=== PATIENT | female | born 1995 | race Caucasian/White ===

== ENCOUNTER 2022-09-16 08:00 | Outpatient (RCR) | payer BC, SELFPAY ==
--- NOTE | 2022-09-16 09:05 | BH.SGPN.GN ---
Behaviors/Verbalizations/Mental Status: []Eye contact good, casually dressed, motor activity appropriate, speech slight pressure but normal tone, mood depressed and anxious, congruent affect, thoughts linear and intact, no evidence of delusions or hallucinations. Reviewed pt's symptom tracker, pt denies suicidal ideation, plan, or intent as of this date. Future oriented. Client Response/Progress/Benefit: []Pt responded well to session, attentive and willing to process with group despite this being her first day. Pt reports feeling nervous but hopeful that group therapy will be helpful in improving her mental health and ability to manage sx of anxiety and depression. Discussed her mental health has begun impacting her ability to maintain employment and creates stress and fear when thinking about the future. Pt shared she is close with her younger brother who has severe autism and that this is a stressor as she worries about his future as well. Wants to work on ?trying to find skills to help me move forward?. Receptive of and appearing to benefit from support of the group environment. Recommended continued IOP tx to continue to improve use of healthy skills and self-care, continue to promote mood stability as well as prevent decompensation. Narrative Note: []
--- NOTE | 2022-09-16 10:10 | BH.SGPN.GN ---
Behaviors/Verbalizations/Mental Status: [] Eye contact is good. Motor activity is appropriate. Appearance is casual. Speech is Appropriate. Mood is anxious. Affect is congruent. Thoughts are linear and logical. No evidence of psychosis. Client Response/Progress/Benefit: [] Pt was an active participant in group discussion and experiential activity. Attentive during psychoeducation on difference between internal and external coping skills. Therapist discussed possible causes to developing and maintain unhealthy coping skills which can impact mental health. Pt participated in interactive discussion identifying common unhealthy which included; overworking, self-harming, substance use, over-sleeping, over-eating, excessive exercise, social media scrolling, isolation, etc. Able to make connections between experiential activity (folder towers) and importance of having a solid base of internal and external coping skills. Benefited from increased awareness of internal and external coping skills and identifying unhealthy coping skills. Will continue in IOP to maintain safety, increase healthy coping, and improve functioning. Narrative Note: []
--- NOTE | 2022-09-16 11:15 | BH.SGPN.GN ---
Behaviors/Verbalizations/Mental Status: []Pt alert and oriented, neatly dressed and groomed. Eye contact good. Motor activity appropriate. Speech within normal limits. Affect congruent, mood euthymic. Thoughts linear, logical, no signs of hallucinations or delusions. Client Response/Progress/Benefit: []Pt responded well to session, taking notes and contributing. Group discussed the different categories of coping skills which included distraction, emotional release, grounding, self-love, and thought challenging.? Pt participated in creating a coping skills ?menu? from the five categories of coping skills. Pt's coping skill menu included: cleaning and organizing, using a fidget, singing, standing up for herself, and using opposite action. Pt reported some of these skills are new and others are skills pt wants to use more often. Appeared to benefit from increasing repertoire of healthy coping skills. First day of IOP tx. Will continue tx to prevent decompensation, improve daily functioning, and reduce negative thinking patterns. ?? Narrative Note: []
--- NOTE | 2022-09-17 11:25 | BH.MDN ---
Multi-Disciplinary Note - Note 60-min Individual Time Started:: 09:13 Date: 09/17/22 Purpose of session/treatment goals addressed:: Purpose of session was to assess current symptoms and stressors, gather additional background information, and identify treatment goals for IOP level of care. 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 Client stated she has a mental breakdown and had to move back home to finish her last class online. Client shared was able to finish school and get her masters in special education. 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 Client stated since 2015 she realizes she has not been able to maintain a job for longer than 6 months. Client reports she did work for [employer] for 8 years but stated every time she only worked once a month. Client stated since 2019 she has had 4 different jobs in which she maintain that job for 3 to 6 months. Client reported she would often get overwhelmed at the job and decided not to go back. Client reported in addition to not being able to continue her job she is struggling with depression and anxiety for many years. Client reported when feeling significantly depressed she lays in bed until noon and has difficulty showering, brushing teeth and accomplishing daily tasks. Client reported prior to IOP she was having daily suicidal thoughts but denied intention or plan to kill self. Client stated since taking any medication she has not had suicidal thoughts in 1 week. Client notes some improvement with her depressed mood in the last 2 weeks. Client reported I feel anxious all the time. Client stated she has panic attacks, avoids things that make her anxious, and finds her healthy coping skills to only work for a small amount of time. Client expressed some frustration with having mental issues because she has a great upbringing and great support system. Client has been going to therapy and has learned many different coping skills but states the skills do not seem to help her manage her depression and anxiety for longer than a few hours. Client responded well to psychoeducation about cognitive triangle, behavior activation, and fear ladder. Client open to starting with a small goal for the weekend to help with behavioral activation. Client reported her small goal for the week and is to brush her teeth morning and evening for the weekend. Risks/Concerns:: Denies suicidal ideation, plan, intent. Future focused. States I would never follow through with my suicidal thoughts. Progress Toward Goals/Plan:: Progress noted with client reporting improvement with depressed symptoms in the last week and having no suicidal ideations in the last week. Client also notes some improvement with her marriage because she has been intentional to connect with her every day. Client did report her migraines and physical pain from anxiety can sometimes be a hindrance to her using her skills or getting out of bed. Client stated she is getting results today from psychological evaluation for autism diagnosis. Plan is for client to continue IOP to improve daily functioning, challenge disorder thought patterns, and prevent decompensation. Time Stopped:: 10:13
--- NOTE | 2022-09-17 14:22 | BH.PSA ---
Source of Information - Presenting Problems/Circumstances Problems, Referral Source, Mental Status, Client: The patient is a 26-year-old female who has been for 2 years and currently lives with her who is referred by her outpatient counselor to the [facility] behavioral health IOP program for worsening symptoms of depression and anxiety. The patient's symptoms have been impacting her functioning at home and also she feels have not impacted her ability to hold a job. She has had 4 jobs since 2019 and has been unable to maintain them for any longer really than 5 months. Patient endorses crying spells, sadness and low motivation, passive thoughts of , hopelessness, worthlessness and guilt. Past Psychiatric History - Treatment Hx Treatment History: She has a nurse psych PA for 1 year and a counselor at [place] [id number] who she sees weekly. Going to [facility] for Autism Spectrum Testing and received ADHD assessment and diagnosis through same agency. First hospitalization:: none Medication Trials:: Yes - Effexor, Prozac, Zoloft, Wellbutrin, Lexapro ECT Therapy:: No Age of first mental health symptoms: She was first depressed in childhood and took her first medications at age 18. She has a history of self-harm by cutting from age [age] but never required stitches. She then stopped cutting but burned herself with a vocational examiner around age for a while and the last time she did this was age 21. Current providers for mental health treatment (counselor, psychiatrist, block and case maker, etc.): Catrachito Bennett - counselor at [place] [id number]. Jannette Ramirez - PA at [place] [id number] for medication management Development & Family of Origin - Childhood Significant Childhood Events: She was born and raised in [place] [facility] and describes her childhood as had a hard time making friends. Her parents were somewhat loving and supportive. She denies any verbal, sexual or physical abuse. - Family Who currently lives in your home?: Lives with her . Describe family composition:: Describes her parents as somewhat loving and supportive. She has 1 brother 16 years younger than her who is autistic. Describes her marriage as good and has been for 2 years. - Family History Family Hx of Psychiatric or AOD Problems: She has a brother with autism. She has a aunt with possible schizophrenia. She has a paternal grandmother who may be borderline. No completed suicides in the family. She has a grandfather, uncle and cousins with alcoholism. Ethnicity - Sexuality Sexual Orientation: Bisexual Spirituality - Christian Do you currently identify with any organized latter-day?: Atheist - Beliefs Is there a particular form of support from this community you can use for your recovery?: No Mental Status - Memory Recent Memory: Poor Remote Memory: Good - Concentration Concentration: Fair - Eye Contact Eye Contact: Fair - Speech Speech: Congruent - Thought Process Thought Process: Logical, Ruminations Insight: Fair Judgment: Poor Behavior: Anxious - Orientation Orientation: Time, Person, Place, Situation - Appearance Appearance: Appropriate - Mood Mood: Anxious, Depressed - Affect Affect: Constricted Suicide Assessment - Suicidal Ideation Have you ever felt like hurting yourself?: Yes Please explain:: She endorses passive thoughts of . She has had fleeting, passive suicidal ideation daily for 10 years but no plan for suicide. She denies active suicidal ideation, homicidal ideation. Self-harm from age [age]. Occasionally will bang her head, last did this one month ago. Suicidal Intentional Rating Scale (SIRS): Current suicidal thoughts/No plan/Contracts for safety Physician Notification: If Active suicidal thoughts/Will not contract for safety is checked, contact physician and document in the Physician Notification section below. Violent Behavior/Abuse History - Homicidal Ideation Do you have any homicidal thoughts? If so, explain:: No Is there a known potential victim? If yes, who:: No - Abuse Have you ever been abused?: No - Life Events Are there any other significant life events?: Financial loss, Hardships - difficulty maintaining employment - Safety Do you ever feel threatened in your home? If yes, describe:: No Adult Social History - Age 16 to Present Describe your current support system:: describes her , mom, and friends as supportive Substance Use - Substance Substance Use Type: Ecstasy - tried once, Marijuana - uses daily since age 18 to help with migraines - IV Substance Use Do you have a history of IV use?: denies Education & Occupational Histo - Education What is your level of education?: Master Degree - Special Education - Occupation List any current or past employment:: Client has had 4 previous jobs since 2019, only able to maintain those jobs for 3-6 months. Service - Service Have you ever been in the ?: No Legal History - Court Orders Have you had any past court orders for psychiatric treatment?: No Do you have a present court order for psychiatric treatment?: No Problem Checklist - Current Problem Areas Problem List: Pain management, Depressed mood/sad, Anxiety, Inattention, Mood swings/hyperactivity, Sleep problems, Additional psychosocial stressors - financial due to not being able to maintain employment. 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 The patient has a history of depression and depression since childhood. The patient's symptoms have been impacting her functioning at home and also she feels have not impacted her ability to hold a job. She has had 4 jobs since 2019 and has been unable to maintain them for any longer really than 5 months. She states that she has a hard time getting along with authoritative bosses and coworkers and has a hard time staying focused and prioritizing. She has a 12-year-old brother with autism and she is needed to take care of him when her parents are gone and she feels this is protective against her ever killing herself. Patient endorses crying spells, sadness and low motivation. She endorses hopelessness, worthlessness and guilt. She says that she is anhedonic, however also states that she is currently enjoying learning how to play the piano, poetry, her dogs and riding. she has some initial insomnia but sleeps 6 hours overnight on average. She admits that she does not keep regular sleep-wake hours and often stays up late in the night playing video games or other things. She states that she has many hobbies. She has low energy and decreased concentration. She endorses passive thoughts of . She has had fleeting, passive suicidal ideation daily for 10 years but no plan for suicide. She denies active suicidal ideation, homicidal ideation, hallucinations, delusions or rosalie. She has a history of self-harm in the past but since age 21 she has only occasionally had banged for self-harm and last did this 1 month ago. Treatment Plan Recommendations - Recommendations Guidelines: Special needs identified to be included in the development of an individualized treatment plan regarding past psychiatric history and treatment, developmental events, family relationships/events/culture, past and/or current educational, occupational, social, and residential experience, and legal status. Recommendations:: Recommended to participate in IOP due to passive thoughts of and mental health decompensation.
--- NOTE | 2022-09-17 15:22 | BH.MTP ---
Master Treatment Plan - Patient Information Program Physician:: Dr. Hines Primary Therapist:: Marie Willoughby, [facility] - Psychiatric Diagnoses Psychiatric Diagnoses:: 1. Major depressive disorder, recurrent, severe. 2. Panic disorder. 3. 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 4. Marijuana use disorder. 5. Nicotine use disorder on nicotine patch for several weeks Diagnosis Code(s):: F33.2 - Estimated LOS Estimated LOS (in weeks):: 6 Problem/Goal #1 - Problem/Goal #1 Stated Goal:: Client will reduce depression, feelings of hopelessness, and suicidal ideation due to Major Depressive Disorder through Intensive Outpatient Program. Description of Barriers: Potential treatment barriers include: migraines, physical pain, negative thoughts, emotion dysregulation, and anxious thoughts. Functional Impact: The patient is a 26-year-old female who has been for 2 years and currently lives with her who is referred by her outpatient counselor to the [facility] behavioral health IOP program for worsening symptoms of depression and anxiety. The patient's symptoms have been impacting her functioning at home and also she feels have not impacted her ability to hold a job. She has had 4 jobs since 2019 and has been unable to maintain them for any longer really than 5 months. Patient endorses crying spells, sadness and low motivation, passive thoughts of , hopelessness, worthlessness and guilt. - Objectives Objective #1 Stated Objective: Client will identify and replace 2-3 negative thinking patterns that reinforce depressive symptoms. Interventions: Therapist will help client identify distorted, negative beliefs about self and replace with more realistic, affirmative messages. Therapist will use CBT to help client increase insight to the connection between thoughts, emotions, and behaviors. Therapist will encourage client to practice thought challenging. Discharge Criteria: Client will have achieved this goal when can identify at least 2 negative thinking patterns, replace thoughts with rational thoughts, and combat suicidal ideation. Target Date: 10/28/22 Review Date: 10/14/22 Objective #2 Stated Objective: Pt will decrease depressive symptoms AEB pt?s score on the DSM 5 cross-cutting measure and improve pt?s daily functioning. Interventions: Through groups and individual therapy, pt will be provided with education on cognitive distortions, mistaken beliefs, and identifying and combating negative self-talk. Therapist will assist pt with getting back into the activities she once enjoyed as well as increasing healthy coping strategies. Discharge Criteria: Pt will have met this goal when pt?s score on the DSM 5 cross cutting measure for depression has been decreased and per pt?s report daily functioning has improved. Target Date: 10/28/22 Review Date: 10/14/22 Problem/Goal #2 - Problem/Goal #2 Stated Goal:: Client will reduce overall frequency, intensity, and duration of the anxiety so that daily functioning is not impaired.? Description of Barriers: Potential treatment barriers include: migraines, physical pain, negative thoughts, emotion dysregulation, and anxious thoughts. Functional Impact: The patient is a 26-year-old female who has been for 2 years and currently lives with her who is referred by her outpatient counselor to the [facility] behavioral health IOP program for worsening symptoms of depression and anxiety. The patient's symptoms have been impacting her functioning at home and also she feels have not impacted her ability to hold a job. She has had 4 jobs since 2019 and has been unable to maintain them for any longer really than 5 months. Patient endorses crying spells, sadness and low motivation, passive thoughts of , hopelessness, worthlessness and guilt. - Objectives Objective #1 Stated Objective: Client will learn and implement 2-3 calming skills to reduce overall anxiety and manage anxiety symptoms. Interventions: therapist and group sessions will help client identify physiological warning signs of anxiety, increase awareness of thoughts that increase anxiety, and identify behaviors that reinforce anxious symptoms. Group and individual counseling will teach client calming skills to help manage anxious symptoms. Discharge Criteria: Client will have achieved this goal when can verbalize at least 2 calming skills and reports skills successfully help reduce anxious symptoms. Target Date: 10/28/22 Review Date: 10/14/22 Objective #2 Stated Objective: Pt will decrease anxious symptoms AEB pt?s score on the DSM 5 cross-cutting measure improve pt?s daily functioning. Interventions: Through groups and individual therapy, pt will be provided education about anxiety?s impact on body and common physiological reaction to anxiety. Therapist will teach pt appropriate breathing techniques and build healthy coping skills to manage daily anxieties. Discharge Criteria: Pt will have met this goal when pt?s score on the DSM 5 cross cutting measure for anxiety has been decreased and per pt?s report daily functioning has improved. Target Date: 10/28/22 Review Date: 10/14/22
--- NOTE | 2022-09-20 09:05 | BH.SGPN.GN ---
Behaviors/Verbalizations/Mental Status: [] Eye contact is good. Motor activity is appropriate. Appearance is casual. Speech is Appropriate. Mood is anxious. Affect is congruent. Thoughts are linear and logical. No evidence of psychosis. Reviewed daily check in sheet and no reports of suicidal ideations or intent. Client Response/Progress/Benefit: [] Pt was an active participant in group discussion. Attentive. Daily symptom tracker noted 3/5 for anxiety, depression, and irritability. Mental health win over the weekend was I deep cleaned the bathroom. She discussed how this benefited her mental health. Stressor involved increasing medical issues in the past several months (migraines, arm pain, and fainting). She has an upcoming CAT scan scheduled to further assess, however when she has these physical symptoms it also impacts her functioning and mental health. She had a migraine this weekend which led to avoiding a baby shower. Also shared with the group that she was dx'd with Autism yesterday after completing testing. She feels validated and discussed her struggles. Group was supportive and provided encouragement which was beneficial. Will continue in IOP to maintain safety, prevent decompensation, increase healthy coping, and improve functioning. Narrative Note: []
--- NOTE | 2022-09-20 10:15 | BH.SGPN.GN ---
Behaviors/Verbalizations/Mental Status: []Client alert and oriented, casually dressed and groomed. Eye contact good. Motor activity appropriate. Speech within normal limits. Affect congruent, mood euthymic and anxious. Thoughts linear, logical, no signs of hallucinations or delusions. Client Response/Progress/Benefit: []Client responded well to session AEB sharing and listening attentively to others. Client participated in group discussion defining anxiety and common characteristics. Group discussed the impacts of anxiety, its benefits, as well as when it becomes unhealthy. Clinician provided psychoeducation on anxiety diagnoses and the anxiety triangle of physical symptoms, safety behaviors, and common anxious thoughts. Client identified her own physical sx to include pushing feet into the floor, increase heart rate, and spacing out; and safety behaviors as avoidance and over preparing. Client appeared to benefit from increased knowledge of anxiety diagnoses and causes, as well as improved self-awareness of anxiety symptoms. Will continue IOP treatment to increase consistency of healthy coping skills, improve mood stability, and prevent decompensation. Narrative Note: []
--- NOTE | 2022-09-20 11:10 | BH.SGPN.GN ---
Behaviors/Verbalizations/Mental Status: []Pt alert and oriented, neatly dressed and groomed. Eye contact good. Motor activity appropriate. Speech within normal limits. Affect congruent, mood euthymic. Thoughts linear, logical, no signs of hallucinations or delusions. Client Response/Progress/Benefit: []Pt was an active participant in group discussion AEB? providing contributions throughout group and listening attentively to others. Pt able to connect how current safety behaviors are reinforcing anxiety. Attentive during psychoeducation on anxiety management skills. The group practiced gentle stretching and thought challenging during session. Engaged and attentive during group brainstorm of healthy anxiety reduction skills. Appeared to benefit from practicing in the moment coping skills and increasing repertoire of anxiety management skills. Pt selected wanting to work on using affirmational statements to reduce anxiety and be more mindful. Pt will continue IOP tx to prevent further decompensation, increase daily functioning, and gain healthy coping skills. ?? Narrative Note: []
== END 2022-09-21 23:59 ==
LOC: BHIOP 08:00
PROVIDERS: Referring Provider Psychiatry & Neurology Psychiatry; Visit Provider Psychiatry & Neurology Psychiatry
DX: F33.2 Major depressive disorder, recurrent severe without psychotic features (principal); F41.0 Panic disorder [episodic paroxysmal anxiety]; F12.90 Cannabis use, unspecified, uncomplicated
CPT/HCPCS: S9480; 90837; 90853

== ENCOUNTER 2022-09-22 06:50 | Outpatient (RCR) | payer BC, SELFPAY ==
--- NOTE | 2022-09-22 11:40 | BH.NA_ITS ---
Physical Data - Vital Signs Pulse Rate: 89 Blood Pressure: 140/86 - Height/Weight Height: 1.66 m Weight:: 72.575 kg Weight in Pounds: 160.0 lbs Current Medication Compliance - Medication Compliance Do you take your medication as prescribed?: Yes Nutritional History - Appetite Nutritional Instructions:: If client shows signs of a swallowing problem, weight change of 10 pounds or more in the last month, or is on a diabetic diet, the physician will review and request a dietitian consult, as appropriate. All unintentional weight loss will be referred to the physician for decision on need for dietitian consult. Describe your appetite:: Good - Client states appetite overall varies, but states weight is fairly stable. Functional Assessment - Sleep Pattern Describe any problems with sleeping: Client reports sleeping 5-6 hours per night. 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 If so, list type and date:: No Substance Abuse - Substance Abuse Please describe substance abuse in the last 30 days:: Client denies alcohol use. Client states she was vaping but has now been using a nicotine patch for 3 weeks to stop vaping. Client reports usually daily marijuana use since about age 18 for migraine headaches. Client states she has used tyler occasional in the past. Client states 1-2 caffeine drinks per day. Mental Status Summary - Mental Status Significant Findings/Observations on Appearance and Mood:: Client is alert and oriented x 4. Client is cooperative with assessment. Client is casually groomed with good hygiene. Client makes good eye contact. Client's voice has regular rate and volume. Client has appropriate affect and makes logical associations. Client has normal processing. Client denies delusions/hallucinations. Client reports some fleeting SI at times, but denies plan or intent, and denies SI this day. Suicide Assessment - Suicidal Ideation Are you currently or have you been suicidal in the past?: Yes - fleeting SI at times, no intent/plan, denies today Suicidal Intentional Rating Scale (SIRS): Suicidal thoughts (past) Physician Notification: If Active suicidal thoughts/Will not contract for safety is checked, contact physician and document in the Physician Notification section below. Assault History/Potential Past Psychiatric History - MH Treatment Hx Past Psychiatric Medications:: Effexor, Wellbutrin, Lexapro, Zoloft, Prozac Age of first mental health symptoms: Client states she has been depressed and anxious my whole life but was first on medications for mental health around age 21. Client was recently diagnosed with autism spectrum disorder and states she has an autistic brother. Describe (age, circumstance, etc) any past hospitalizations: None. Current providers for mental health treatment (counselor, psychiatrist, case worker, etc.): [place] [address] for counseling, Dayna GARCIA at [place] [address] for psychiatry Fall Risk Assessment - Age Age: Less than 60 - Mental Status Mental Status: Willing & able to ask for assistance when needed - Physical Status Physical Status: No problems - Impairments Impairments: None - Elimination Elimination: Continent AND independent - Gait or Balance Gait or Balance: Walks independently - Hx of Falls History of falls in the past 6 months: No known history - Medications/Substances Psychotropics:: Antidepressants, Antipsychotics Medications/substances used within the past 24 hours or ordered to administer: 1 -2 of the medications/substances listed above - Total Score Total Points:: 1 RN Summary of Impressions - Impressions Recommendations: Include psychiatric and medical issues, treatment planning recommendations, and discharge planning needs. Impressions: Psychiatric Issues: 1. Major depressive disorder, recurrent, moderate to severe. 2. Panic disorder. 3. 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 4. Autism spectrum disorder (F84.0). 5. Marijuana use disorder. 6. Nicotine use disorder on nicotine patch for several weeks - Level of Care How do the client's current symptoms and functional deficits support need for this level of care?: Client was referred to [facility] by outpatient therapist for anxiety, depression and fleeting SI. Client states about a month ago she had a nervous breakdown that just kept getting worse and worse. Client states she would have crying spells that made her too weak to walk, panic attacks, anhedonia, decreased motivation and decreased energy. Client states due to her mental health, she had lost several jobs over the last couple of years. Client states she has had some fleeting SI since age 12. Client states she has difficulty regulating emotions. IOP will promote gains and prevent further decompensation while providing social support and skills training.
[2022-09-22 12:06] VITALS: BP 140/86; PULSE 89
--- NOTE | 2022-09-22 13:13 | PCM.BH.PSYEV ---
Psychiatric Evaluation Initial Evaluation Initial Evaluation: History of Present Illness: [] The patient is a 26-year-old female who has been for 2 years and currently lives with her who is referred by her outpatient counselor to the [facility] behavioral health IOP program for worsening symptoms of depression and anxiety. The patient has a history of depression my whole life and anxiety and a recent diagnosis of autism spectrum disorder. The patient's symptoms have been impacting her functioning at home and also she feels have not impacted her ability to hold a job. She has had 4 jobs since 2019 and has been unable to maintain them for any longer really than 5 months. She states that she has a hard time getting along with authoritative bosses and coworkers and has a hard time staying focused and prioritizing. She has a 12-year-old brother with autism and she is needed to take care of him when her parents are gone and she feels this is protective against her ever killing herself. For primary support she has her mom, and friends. Patient endorses crying spells, sadness and low motivation. She endorses hopelessness, worthlessness and guilt over being more functional than my brother. She says that she is anhedonic as she is also states that she is not currently enjoying learning how to play the piano, poetry, her dogs and riding. Her she has some initial insomnia but sleeps 6 hours overnight on average. She is admits that she does not keep regular sleep-wake hours and often stays up late in the night playing video games or other. She states that she has many hobbies. She has low energy and decreased concentration. She endorses passive thoughts of . She has had fleeting, passive suicidal ideation daily for 10 years but no plan for suicide. She denies active suicidal ideation, homicidal ideation, hallucinations, delusions or rosalie. She drinks 8 to 24 ounces of caffeine a day mostly in the form of Dr. Navarro. She often uses caffeine after 2 PM. She has a history of self-harm in the past but since age 21 she has only occasionally had banged for self-harm and last did this 1 month ago. Current Psychiatric Medications: [] Abilify 4 mg p.o. daily (x10 days now); Pristiq 100 mg p.o. daily (x2-1/2 years now); Vistaril 25 mg, 1-3 up to 3 times a day. Past Psychiatric History: [] No psych admits ever. No suicide attempts ever. She has a nurse psych PA for 1 year and a counselor at [place] [id number] who she sees weekly. She recently discontinued the Pristiq and the Adderall or decreased it or something. She was first depressed in childhood and took her first medications at age 18. She has a history of self-harm by cutting from age [age] but never required stitches. 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 Past meds include Effexor, Prozac, Zoloft, Wellbutrin, Lexapro and 1 other including the and also the current meds. She had [employer] testing in the past. Substance Use History: [] No alcohol use. No other drugs except tried Theodora once. She does use marijuana daily smokes 10 had since age 18 and says this is the only thing that helps with her headaches. 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 She had ear tubes surgery and wisdom teeth. She is a 0 para 0 female and does not have regular menses. She does not want to get but is not using control now. Her is getting a vasectomy soon and she states that they are not having sex much. Family Psychiatric History: [] Mother and father both in their 50s. She has a brother with autism. She has not possible aunt with schizophrenia. She has a paternal grandmother who may be borderline. No completed suicides in the family. She has a grandfather, uncle and cousins with alcoholism. Personal/Social History: [] She was born and raised in [facility] and describes her childhood as had a hard time making friends. Her parents were somewhat loving and supportive. She denies any verbal, sexual or physical abuse. She has 1 brother 16 years younger than her who is autistic. In school she was very smart but she had a delay in speech and had a repeat preschool. She had trumps some trouble learning and concentrating. She graduated high school got a masters in a BS and education. She got at age 24 and describes her as supportive and her marriage is good. She had 1 other 5-year ex-fianc? in the past. Legal History: [] No arrests. No DUIs. 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 Review of Systems: [] Migraine headaches and review of systems otherwise negative except as noted in present illness. Vital Signs: [] Vital signs reviewed in the nurses notes and updated and the patient is deemed medically able to participate in the IOP program. Mental Status Examination: [] The patient is a 26-year-old female who appears normal for stated age and is casually dressed and groomed with good hygiene. She is ambulatory with a normal gait. She has no psychomotor agitation or retardation. She is cooperative during the interview. Eye contact is fair to good and speech is normal rate and rhythm and fluent with no pressure. Mood is depressed. Affect is full and normal. Thought processes goal-directed and organized. Thought content: There is evidence of passive thoughts of , fleeting, passive suicidal ideation which is chronic. There is no evidence of active suicidal ideation, homicidal ideation, hallucinations or delusions. Reality testing is intact. Intelligence is above average. Judgment is intact. Insight is limited. Impulsivity is high. Diagnoses: [] 1. Major depressive disorder, recurrent, moderate to severe 2. Panic disorder 3. Strong cluster B traits: Borderline and narcissistic 4. Autism spectrum disorder (F84.0) 5. Marijuana use disorder 6. Nicotine use disorder on nicotine patch for several weeks Plan: [] The patient will start the IOP program at [facility] as the structure, support, education and group therapy will hopefully prevent worsening of her symptoms which could require hospitalization. She felt safe during the interview and if it anytime she does not feel safe she will let us know or go to the emergency room. The risks, options, possible complications of the medications were discussed with the patient and she understands and accepts these. The patient request to decrease her Pristiq as she feels that it is not really helping her. The patient will decrease her Pristiq to 50 mg p.o. daily. She will continue to follow-up with her outpatient providers and I will see the patient in follow-up in 2 weeks. Patient agrees to keep regular sleep-wake hours as it will be difficult to improve her sleep situation until she dies. She agrees to decrease caffeine use especially no caffeine after 12 noon.
--- NOTE | 2022-09-22 13:26 | BH.DR.ITP ---
Initial Treatment Plan Patient Information Visit Information: ADMISSION DATE: EXPECTED LOS: 4-6 weeks Problems/Symptoms Problem #1:: Depression Symptom:: Sadness, hopelessness, worthlessness, guilt, passive thoughts of , fleeting, passive suicidal ideation Problem #2:: Anxiety Symptom:: Worry, rumination, panic attacks
--- NOTE | 2022-09-23 11:47 | BH.MDN_ITS ---
Multi-Disciplinary Note - Note 45-min Individual Time Started:: 09:10 Date: 09/22/22 Eye Contact:: Fair Motor Activity:: Restless Appearance:: Casual Speech:: Appropriate Mood:: Anxious, Other - dysphoric Affect:: Congruent Thoughts:: Logical, No evidence of hallucinations/delusions noted Staff Interventions:: psychoeducation on: - distorted thoughts, CBT techniques, rapport building, strengths perspective, goal setting, taught coping skills - accomplishment journal Client Response:: Client reported she is feeling off this morning. Client stated she has been anxious since waking up this morning and she cried on the drive to [facility]. Client reported she did find out last night that her will be doing band practice on the nights that are supposed to be time for them to spend together. Client stated they had come to an agreeance a couple of weeks ago that he would do band practice every other week so they have more time together. Client stated if he does the band practice twice a week she will only get to spend weekends with him because the other nights he is in classes. Client reported she feels frustrated because she's alone all day and now will be alone each evening. Client stated she didn't communicate her feelings yet, but will do so tonight. Recognizes coming up with a compromise would be helpful because she knows he needs time to do things that he enjoys since he works a lot and goes to school. Client reported she overall did better with her goal from last week of brushing her teeth twice a day. Client stated she didn't do it 100% of the time, but knows there is improvement. Client struggled with remembering what she did over the weekend. Client stated her short-term memory is poor. Client eventually noted she was able to do some cleaning, practiced with her singing, and practiced playing on the piano. Client reported she also is doing better with getting out of bed before noon. Client open to trying skill of writing down her daily accomplishments in her journal everyday to help her note positives each day and improve memory. Client identified she was able to go to [employer] yesterday by herself and didn't have anxiety because she used the [employer] kaycee to help her make a list and find the items she needed. Client noted this as significant win since she usually avoids the grocery store. Client receptive to psychoeducation about cognitive distortions and willing to read over the provided handout. Client also encouraged to write down on thought log any negative thoughts she has over the week. Client shared with therapist that she has been struggling with wanting to talk to her about becoming a polyamorous couple because she is bisexual and believes it would help their relationship if they had a third person. Client stated she hasn't broached the topic yet under recommendation of outpatient therapist for client to wait until she is more stable. Client able to identify potential positives and negatives about bringing up this idea with her . Client reported she doesn't think he would be open minded to this idea because he seems to prefer monogamy. Client stated she would like to discuss more, but will not bring this up to her yet. Risks/Concerns:: Client denies active thoughts of suicide, plan, or intention. Client has hx of daily passive thoughts of . Client identifies her brother as protective factor. future oriented. Progress Toward Goals/Plan:: Progress noted with client reporting ability to manage anxiety while at a grocery store and complete her full grocery trip without having a panic attack or significant anxiety. Client also reports following through with her goal of brushing her teeth more often. client did express concern that she still isn't ready to start a job and isn't sure she wi ll be ready for awhile. Client reported she is considering applying for disability because without her working they are having significant financial issues. Client states she knows how to apply for disability because she's helped others in a previous job. Plan is for client to continue IOP to improve emotion regulation, improve daily functioning, and prevent decompensation. Time Stopped:: 10:00
--- NOTE | 2022-09-24 09:05 | BH.SGPN.GN ---
Behaviors/Verbalizations/Mental Status: [] Eye contact is good. Motor activity is appropriate. Appearance is casual. Speech is Appropriate. Mood is depressed. Affect is congruent. Thoughts are linear and logical. No evidence of psychosis. Reviewed daily check in sheet and no reports of suicidal ideations or intent. Client Response/Progress/Benefit: [] Pt was an active participant in group discussion. Attentive. Daily symptom tracker notes 4/5 for depression, anxiety, and irritability. Mental health win was I had a job interview and is optimistic. Tearful while discussing the interview. Ruminating on obtaining a Master's Degree and failing at every job that she has attempted in her field of study. 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 Group provided support and reframed certain cognitive distortions. Another stressor was conflict with her . Benefited from group support, encouragement, and feedback. Will continue in IOP to maintain safety, prevent decompensation, increase healthy coping, and improve functioning. Narrative Note: []
--- NOTE | 2022-09-24 10:20 | BH.SGPN.GN ---
Behaviors/Verbalizations/Mental Status: []Client alert and oriented, casually dressed and groomed. Eye contact good. Motor activity appropriate. Speech within normal limits. Affect congruent, mood anxious. Thoughts linear, logical, no signs of hallucinations or delusions. Client Response/Progress/Benefit: []Client receptive to session AEB contributing to discussion, as well listening attentively to others, and taking notes. Worked with group to brainstorm the positive and negative aspects of stress on physical and mental health. Group did well to identify the benefits of stress as well as the impact of distress on performance, relationships, and mental health. Client identified their personal top stressors as: not being able to maintain a job, financial problems, and medical issues. Client reports when the stress overflows client reacts by crying a lot and eventually shutting down. Client seemed to benefit from increased awareness of current stressors and impact stress has on mental health. Recommended to continue IOP tx to improve daily functioning, increase utilization of healthy coping skills, and prevent decompensation.
--- NOTE | 2022-09-24 11:15 | BH.SGPN.GN ---
Behaviors/Verbalizations/Mental Status: []Pt alert and oriented, neatly dressed and groomed. Eye contact good. Motor activity appropriate. Speech within normal limits. Affect congruent, mood euthymic. Thoughts linear, logical, no signs of hallucinations or delusions. Client Response/Progress/Benefit: []Pt engaged participant AEB listening attentively to others and contributing to discussion. Attentive during psychoeducation on the 4 A's of Coping with Stress (Avoid, Alter, Adapt, Accept). Participated in experiential activity in which group members had to utilize stress management skills in the moment. Pt was encouraging others and providing direction to group. Pt engaged in review of the 4 A?s and picked wanting to work on accepting her medical issues and needing a different work environment. Benefited from processing in the moment stress management strategies and identifying new ways to cope with stress. Will continue in IOP tx to prevent decompensation, improve daily functioning, and increase application of healthy coping skills. Narrative Note: []
--- NOTE | 2022-09-27 09:03 | BH.SGPN.GN ---
Behaviors/Verbalizations/Mental Status: []Eye contact is good. Motor activity is appropriate. Appearance is casual. Speech is Appropriate. Mood is euthymic, positive. Affect is congruent. Thoughts are linear and logical. No evidence of psychosis. Reviewed daily check in sheet and no reports of suicidal ideations or intent. Client Response/Progress/Benefit: []Pt was an active participant in group discussion. Attentive. Pt reported mental health positive as taking steps to quit smoking and getting the nicotine patch to aid in doing so. Additional positive noted as challenging herself to have a difficult conversation with her when feeling her needs were not being met. Indicated that this was uncomfortable at first but resulted in being able to feel her was more present and engaged throughout the remainder of the weekend. Shared their differences in values and priorities is a source of contention within the relationship which has been an ongoing stressor. Group was supportive and provided encouragement and empathic responses, which was beneficial. Will continue in IOP to continue to improve consistent use of healthy communication, promote mood stability, and prevent decompensation. Narrative Note: []
--- NOTE | 2022-09-27 10:15 | BH.SGPN.GN ---
Behaviors/Verbalizations/Mental Status: []Pt alert and oriented, neatly dressed and groomed. Eye contact good. Motor activity appropriate. Speech within normal limits. Affect congruent, mood euthymic. Thoughts linear, logical, no signs of hallucinations or delusions. Client Response/Progress/Benefit: []Pt participated at times during the group discussions. Participated during interactive discussion on defining conflict (internal/external) and possible benefits to conflict. Attentive during psychoeducation on conflict styles and engaged during small group activity in which peers identified the benefits and consequences to each conflict style. Pt identified that their primary conflict style as collaborating. Stated healthy conflict can lead to growth within a relationship. Benefited from increased awareness of the impact of conflict styles in mental health. Will continue in IOP to challenge distorted thoughts, improve emotion regulation, and prevent decompensation.
--- NOTE | 2022-09-27 20:47 | BH.MDN ---
Multi-Disciplinary Note - Note 60-min Individual Time Started:: 11:00 Date: 09/27/22 Purpose of session/treatment goals addressed:: Purpose of session was to address goals 1 and 2 from MTP. Eye Contact:: Fair Motor Activity:: Restless Appearance:: Casual Speech:: Appropriate Mood:: Anxious Affect:: Congruent Thoughts:: Linear, Logical, No evidence of hallucinations/delusions noted Staff Interventions:: CBT techniques, rapport building, strengths perspective, goal setting, other - reviewed homework Client Response:: Client reported she completed her homework from last session of working on an accomplishment journal. Client stated she started identifying accomplishments with her . client reported overall her weekend was positive. Client stated she was able to spend a lot of quality time with her . Client stated she had open conversation with her about her not feeling that he is doing enough to fill her love cup. Client reported she brought up the idea of opening their relationship to a third person so she can get her needs met and he can have a break. Client stated her was not open to that idea and stated he would put more effort into being more connected to her. Client stated she is hopeful they will continue to work on their relationship. Client reported continued stress about not being able to find a job. Client stated she had a job interview last week for a part-time job. Reported she isn't sure she got the job, but is hopeful it would be a good fit for her. Client stated some of her financial stress has decreased since her found out he will be getting a promotion with a pay increase this summer. Client reported she still thinks applying for disability and social security because she doesn't think she can maintain a job right now due to her mental health. Client stated she still doesn't have a morning routine because she's currently focusing on getting out of bed at least 5-10 minutes after her alarm goes off. Open to ideas on what can help her get out of bed. Client agreed to look at cognitive distortions and identify her top distortions that impact her. Risks/Concerns:: Client denies current suicidal ideation, plan or intention. Future focused. Progress Toward Goals/Plan:: Client reported slight decrease in depressive symptoms and not having any suicidal thoughts in over a week. Client continues to report daily anxiety. Client continues to report low energy, racing thoughts, and feeling tired all the time. Client reports improvement with communication within her relationship. Client does not believe she can maintain a full-time job due to her mental health and plans to apply for disability to help with financial stress of paying bills. Client is to continue IOP to improve daily functioning, consistently apply skills, and prevent decompensation. Time Stopped:: 11:57
--- NOTE | 2022-09-29 09:00 | BH.SGPN.GN ---
Behaviors/Verbalizations/Mental Status: [] Eye contact is good. Motor activity is appropriate. Appearance is casual. Speech is Appropriate. Mood is depressed/irritable. Affect is congruent. Thoughts are linear and logical. No evidence of psychosis. Reviewed daily check in sheet and no reports of suicidal ideations or intent. Client Response/Progress/Benefit: [] Pt was an active participant in group discussion. Attentive. Emotion for today is agitated. Daily symptom tracker notes 4/5 for anxiety and irritability and 3/5 for depression. She experienced a migraine yesterday which significantly impacted her functioning and emotions. Talked about the impact that her physical and somatic have on her mental health as well as functioning (tasks, employment, etc). Her mental health win was cleaning a little bit despite the migraine. Brief check during process group noting residual migraine. Benefited from group support, encouragement, and feedback. Will continue in IOP to maintain safety, prevent decompensation, increase healthy coping, and improve functioning. Narrative Note: []
--- NOTE | 2022-09-29 10:15 | BH.SGPN.GN ---
Behaviors/Verbalizations/Mental Status: [] Client alert and oriented, casually dressed and groomed. Eye contact fair. Motor activity appropriate. Speech within normal limits. Affect constricted, mood anxious. Thoughts linear, logical, no signs of hallucinations or delusions. Client Response/Progress/Benefit: Pt participated at times during group discussion. Active during group activity. Attentive during psychoeducation on fear and the impact that fear of failure can have. Pt and peers provided insight on thoughts that contribute to fear of failure such as: I'm not good enough, I won't succeed, I know I can't/couldn't do it, and I could have done that better. Pt and peers were able to identify the benefits to failure in an attempt to reframe. Group identified that failure can be a way to: learn what to do differently, lead to personal growth, increase self-compassion, and problem-solve. Pt benefited from psychoeducation on the impact of fear of failure and changing perspective on how to view setbacks. Pt will continue in IOP to improve emotion regulation, increase healthy coping skills, and prevent decompensation.
--- NOTE | 2022-09-29 11:10 | BH.SGPN.GN ---
Behaviors/Verbalizations/Mental Status: []Client alert and oriented, casually dressed and groomed. Eye contact fair to good. Motor activity appropriate. Speech within normal limits. Affect congruent, mood anxious, dysthymic. Thoughts linear, logical, no signs of hallucinations or delusions. Client Response/Progress/Benefit: []Client responded well to session, engaged in the experiential activity and attentive throughout group processing. Client reported fear of failure has kept client from being herself, exploring career opportunities, and expanding friendships. Client completed fear of failure worksheet and was able to identify thoughts and behaviors that reinforce personal fear of failure including difficulty stepping out of her comfort zone, avoidance, and limited healthy support. Client participated in group discussion regarding strategies to overcome fear of failure. Identified wanting to work on lowering her expectations for herself. Appeared to benefit from increased knowledge of strategies to combat fear of failure and gaining self-awareness. Client will continue IOP tx to increase emotional regulations skills, healthy boundaries, and improve overall functioning. Narrative Note: []
--- NOTE | 2022-10-01 10:10 | BH.SGPN.GN ---
Behaviors/Verbalizations/Mental Status: [] Eye contact is good. Motor activity is appropriate. Appearance is casual. Speech is Appropriate. Mood is anxious. Affect is congruent. Thoughts are linear and logical. No evidence of psychosis. Client Response/Progress/Benefit: [] Pt was an active participant in group discussions. Attentive during psychoeducation. Participated during interactive discussions in which peers attempted to define crisis. Group also worked together to identify unhealthy responses to crisis which included; isolation, self-harm, over-sleeping, impulsive activities, over-sharing, and lashing out. Pt identified her top 3 warning signs that she is in crisis which were 1.Worrying about the next day 2. Rumination 3. Lack of sleep. Benefited from increased understanding of crisis and awareness of personal warning signs to crisis. Will continue in IOP to prevent decompensation, stabilize mood, increase healthy coping, and improve functioning to return to FT work. Narrative Note: []
--- NOTE | 2022-10-01 11:10 | BH.SGPN.GN ---
Behaviors/Verbalizations/Mental Status: []Pt alert and oriented, casually dressed and appropriately groomed. Eye contact good. Motor activity appropriate. Speech within normal limits. Affect congruent, mood anxious and depressed. Thoughts linear, logical, no signs of hallucinations or delusions. Client Response/Progress/Benefit: []Pt responded well to session as evidenced by listening attentively to others and providing strategies during discussion.? Pt identified personal warning signs for crisis and gained further awareness of earliest warning signs. Pt created a crisis action plan to help better manage warning signs for crisis. Pt able to create action plan for warning sign of lack of sleep. Pt's action plan included: getting up and doing something and then laying back down, change the environment, and schedule a therapy appointment. Pt appeared to benefit from creating a crisis action plan and increasing self-awareness. Pt continue IOP tx to continue to improve mood stability, increase healthy coping, and prevent decompensation. Narrative Note: []
--- NOTE | 2022-10-01 16:01 | BH.MDN ---
Multi-Disciplinary Note - Note 60-min Individual Time Started:: 09:00 Date: 10/01/22 Purpose of session/treatment goals addressed:: Purpose of session was to address goals 1 and 2 from MTP. 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 Client stated she thinks the job will be better for her because it's less people interaction and decrease stress. Client reported she is a little worried about being able to stay awake because lately she thinks the [employer] is making her tired throughout the day. Client reported she really hasn't gotten much done around the house due to being too tired. Client will continue to observe her energy level and can talk to the [facility] psychiatrist at her next session. Client did homework of reviewing cognitive distortions and identifying which distortions she feels like she connects with. Client stated she utilizes emotional reasoning, personalization, jumping to conclusions, Mental filter, overgeneralization, disqualifying the positives, and labeling. client noted she likely utilizes all 10 distortions that were on the list but stated the ones above our used most frequently. Client able to connect how commiserations impact her interactions with other people in judgment of herself. Client reported her mind reading in labeling has led to difficulty in her work environment because she'll get into verbal altercations with others based on how she thinks others are thinking. Client recognizes the importance of being able to identify and challenge distortions which is something she's open to working on. Client shared additional stressor is her leaving for the weekend to do a band show. Client stated she feels like her doesn't want to spend time with her which makes her feel extremely sad and lonely. Therapist gently challenged that her spent all last weekend with her and quit his second band to allow more time to be with her. Client stated she feels like he's already filled up his free time with spending time with his other friends. Client continues to express concern if he doesn't put more effort into spending time with her she's not sure how long this marriage can last. client worked with therapist to develop plan for the weekend to help her manage thoughts and emotions while he is gone. Client stated she can do some crafting, cleaning, and hang out with her parents. Client stated tonight she will get to spend time with her because they're going to poetry night which is something he has suggested. Therapist encouraged client to continue to openly communicate with her about her feelings and thoughts instead of making assumptions on how he's feeling. Risks/Concerns:: Client reports passive thoughts of . Denies suicidal intention or plan. future focused. 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 client is showing increased awareness into how her thought patterns impact her emotions and behavior. Client is to spend time logging distorted thoughts throughout the week so next week we can start to practice challenging distortions. Client to continue IOP to increase consistent use of healthy skills, improve daily functioning, and prevent decompensation. Time Stopped:: 10:00
--- NOTE | 2022-10-04 09:05 | BH.SGPN.GN ---
Behaviors/Verbalizations/Mental Status: []Eye contact good, casually dressed, motor activity appropriate, speech normal rate and tone, mood euthymic and anxious, congruent affect, thoughts linear and intact, no evidence of delusions or hallucinations. Reviewed pt's symptom tracker, pt denies suicidal ideation, plan, or intent as of this date. Future oriented. Client Response/Progress/Benefit: [] Pt responded well to session, attentive and willing to process with group. Pt did well to identify wins, which included using opposite action to go to a local place and play pool rather than isolate while her was out of town. Reported feeling less anxious and able to make a new friend as a result. Additional win identified as working with [employer] to improve her support while pursuing new occupational opportunities. 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 Identified current stressor as ongoing issues with expectations within her marriage. Receptive of supportive feedback and suggestions from the group. Progress noted in increased reports of improved skill application and communication with her in order to aid in pt getting her needs met. Recommended continued IOP tx to continue to improve use of healthy skills, promote mood stability, as well as prevent decompensation. Narrative Note: []
--- NOTE | 2022-10-04 10:10 | BH.SGPN.GN ---
Behaviors/Verbalizations/Mental Status: [] Eye contact is good. Motor activity is appropriate. Appearance is casual. Speech is Appropriate. Mood is anxious. Affect is congruent. Thoughts are linear and logical. No evidence of psychosis. Client Response/Progress/Benefit: [] Pt was an active participant in group discussions. Attentive during psychoeducation and participated in experiential activity. Participated during interactive discussion on how emotions can negatively impact how we communicate. Pt along with peers identified that intense emotions can impact one's ability to focus, cause one to shut down, lead to word vomit, cause cognitive distortions (Catastrophizing, Minimizing, mind-reading), and can impact one's ability to comprehend. Pt participated during interactive discussion on the importance of communicating one's emotions to others which can prevent blow-ups, help one get their needs met, help others better understand our emotions/concerns/stressors, can build trust with others, and can help us advocate for ourselves. Able to identify and elaborate on the connections between experiential activity and group topic. Benefited from increased awareness of how emotions can impact communication. Will continue in IOP to maintain safety, prevent decompensation, and improve functioning to return to work. Narrative Note: []
--- NOTE | 2022-10-04 11:15 | BH.SGPN.GN ---
Behaviors/Verbalizations/Mental Status: []Pt alert and oriented, casually dressed and groomed. Eye contact good. Motor activity appropriate. Speech within normal limits. Affect constricted, mood tired. Thoughts linear, logical, no signs of hallucinations or delusions. Client Response/Progress/Benefit: []Pt engaged in session AEB pt listening attentively to peers and providing input. Attentive during psychoeducation on 4 zones of regulation. Pt able to identify feelings and behaviors for each zone.? Pt identified coping skills one can use to support self in each zone. Pt stated belief that she is ?in a state of blue and yellow? as pt feels ?worked up but I?m always tired.? Pt reports practicing self-care and spending time with her deepthi will help pt today. Benefited from increased education on zones of regulation or stages of alertness for emotions and healthy coping skills to use for each zone. Pt will continue IOP tx to prevent decompensation, improve daily functioning, and combat distortions. Narrative Note: []
--- NOTE | 2022-10-08 10:13 | BH.SGPN.GN ---
Behaviors/Verbalizations/Mental Status: []Eye contact is good. Motor activity is appropriate. Appearance is casual. Speech is Appropriate. Mood is euthymic and anxious. Affect is congruent. Thoughts are linear and logical. No evidence of psychosis. Client Response/Progress/Benefit: []Pt was an active participant in group discussions and activities. Attentive during psychoeducation. Pt engaged during interactive discussion in which the group defined self-care and discussed its benefits. Sharing that self-care can enhance a learned skill.?Worked with group to identify myths related to self-care which included; self-care is selfish, don?t feel they deserve self-care/must be earned, self-care means a person is weak, and self-care takes up too much time. Pt participated in small groups where they worked to bust these self-care myths. Benefited from increased awareness of self-care, its benefits, and the consequences of not utilizing self-care strategies. Pt made a lot of connections in group sharing ?self-care is hard for her as she often waits until she is burnt out and then struggles with motivation and energy to complete self-care.? Will continue in IOP to prevent decompensation, increase healthy communication and emotion regulation skills, and improve functioning.? Narrative Note: []
--- NOTE | 2022-10-08 11:10 | BH.SGPN.GN ---
Behaviors/Verbalizations/Mental Status: []Pt alert and oriented, casually dressed and groomed. Eye contact good. Motor activity appropriate. Speech within normal limits. Affect congruent, mood anxious. Thoughts linear, logical, no signs of hallucinations or delusions. Client Response/Progress/Benefit: []Pt engaged participant AEB completing self-assessment worksheet and providing input throughout discussion. Participated in group discussion on the various areas of self-care. Pt completed worksheet identifying current self-care practices and what self-care activities pt wants to start using. Pt selected personal self-care to begin practicing more consistently. Pt plans to do this by starting to exercise and spend time in nature. Appeared to benefit from completing the self-care evaluation and gaining insights into current self-care practices, as well as identifying areas in which pt ?would like to improve upon.?Will continue IOP tx to prevent decompensation, improve daily functioning, and increase healthy coping skills. ???
--- NOTE | 2022-10-12 09:05 | BH.SGPN.GN ---
Behaviors/Verbalizations/Mental Status: []Eye contact good, casually dressed, motor activity appropriate, speech normal rate and tone, mood euthymic and anxious, congruent affect, thoughts linear and intact, no evidence of delusions or hallucinations. Reviewed pt's symptom tracker, pt suicidal ideation within established baseline, denies any plan or intent. Future oriented. Client Response/Progress/Benefit: []Pt responded well to session, attentive and willing to process with group. Pt reports feeling anxious this morning. 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 Shared struggling with confrontation and fears being yelled at. Did well to identify several skills and strategies she can use before, during, and after the call. Connected with supportive suggestions from the group as well. Went on to identify mental health wins for today. This included proactively treating a migraine rather than trying to ignore her symptoms. Shared being able to take time to clean her house as a result which was another win for her. Progress noted in increased use of anxiety management skills. Recommended continued IOP tx to continue to improve consistent use of healthy emotion regulation skills, promote mood stability, as well as prevent decompensation. Narrative Note: []
--- NOTE | 2022-10-12 10:15 | BH.SGPN.GN ---
Behaviors/Verbalizations/Mental Status: []Pt alert and oriented, causally dressed and groomed. Eye contact good. Motor activity appropriate. Speech within normal limits. Affect congruent, mood euthymic. Thoughts linear, logical, no signs of hallucinations or delusions. Client Response/Progress/Benefit: []Pt responded well to session AEB contributing to discussion, taking notes, and listening attentively to others. Group discussed the benefits of managed anger and anger as a secondary emotion. Pt shared perspective on personal benefits of anger as keeping self safe.? Pt completed worksheet on anger triggers and personal warning signs of anger. Pt identified their biggest triggers as being invalidated, traffic, and seeing injustice. Appeared to benefit from increased knowledge of the anger cycle as well as personal triggers. Will continue IOP tx to improve daily functioning, increase distress tolerance skills, and improve mood stability. Narrative Note: []
--- NOTE | 2022-10-12 11:15 | BH.SGPN.GN ---
Behaviors/Verbalizations/Mental Status: []Client alert and oriented, casually dressed and groomed. Eye contact good. Motor activity appropriate. Speech within normal limits. Affect congruent, mood euthymic, slightly anxious. Thoughts linear, logical, no signs of hallucinations or delusions. Client Response/Progress/Benefit: []Pt was engaged throughout AEB contributing to group discussion and self-reflection. Group finished processing cues to anger worksheet. Pt contributed as group brainstormed healthy coping skills for better managing anger which included: music, walking/exercise, changing the environment, communicating with supports, and journaling. Pt reported she would like to work on skill of belly breathing in the moment and problem solving to help manage anger responses. Pt appeared to benefit from identifying different techniques to manage anger as well as gaining awareness of potential consequences of unmanaged anger. Will continue IOP tx to increase consistent use of skills, challenge distortions, and prevent decompensation.
--- NOTE | 2022-10-13 09:03 | BH.SGPN.GN ---
Behaviors/Verbalizations/Mental Status: []Eye contact good, casually dressed, motor activity appropriate, speech normal rate and tone, mood anxious, congruent affect, thoughts linear and intact, no evidence of delusions or hallucinations. Reviewed pt's symptom tracker, suicidal ideation within baseline, pt denies plan, or intent as of this date. Future oriented. Client Response/Progress/Benefit: []Pt responded well to session, attentive and willing to process with group. Pt stated she has been feeling tired and blah the last few days. Client reported mental health positive as allowing herself to take a nap yesterday which helped her feel refreshed and able to be productive with chores. Client stated additional mental health positive as taking time to relax after having a busy weekend celebrating her birthday. Client reported current stressor as still waiting to hear from her job when her start date will be. Appeared to benefit from group?discussion and supportive environment. Recommended continued IOP tx to continue to increase healthy coping skills, challenge negative thoughts, and prevent decompensation.
--- NOTE | 2022-10-13 11:10 | BH.SGPN.GN ---
Behaviors/Verbalizations/Mental Status: []Pt alert and oriented, casually dressed and groomed. Eye contact good. Motor activity appropriate. Speech within normal limits. Affect congruent, mood anxious. Thoughts linear, logical, no signs of hallucinations or delusions Client Response/Progress/Benefit: []Pt responded well to session AEB completing the resilience worksheet provided. Reports belief they already use resilience traits of??self-awareness and accepting that change is a part of living.? Pt shared these traits will help pt overcome current stressors. Pt stated they would like to continue to develop resilience trait of ?keeping things in perspective? which pt wants to do this by ?thinking in the ivey.? Pt seemed to benefit from discussing strategies for improving personal resilience and identifying resilience traits pt already possesses. Progress noted as pt?s DSM-5 scores decreased at time of review. Will continue IOP tx to increase distress tolerance skills, improve daily functioning, and improve energy. Narrative Note: []
--- NOTE | 2022-10-13 12:40 | PCM.BH.PN ---
Progress Note Progress Note: History of Present Illness/Interim History: The patient is a 27-year-old , female with a history of depression and anxiety and autism spectrum disorder who is seen in follow-up at the [facility] behavioral health IOP program. She was last seen 3 weeks ago and at that time her Pristiq was decreased to 50 mg p.o. daily. Patient states that she feels her mood is overall better and she feels she is less depressed than before. She still feels tired a lot of the time. She still has some anxiety but is not having any panic attacks. She feels she is in more control of her moods and is benefiting from the self-care techniques and strategies such as opposite action which she has learned in the IOP. 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 The patient still has some decrease in concentration because she is still not receiving her Adderall and she feels she may need this to do well at her new job. She is sleeping 8 to 10 hours a night but still has some fatigue in the daytime. She has only had 1 panic attack since last visit on September 22, 2022. She denies any self-harm, suicidal ideation, homicidal ideation, passive thoughts of , hallucinations or delusions. She still uses her marijuana vaporizer daily for headache prevention. She complains of neck tension which is severe and states she wakes up that way every morning and lasts all day and she feels this also contributes to her migraine headaches. Current Psychiatric Medications: [] Pristiq 50 mg p.o. daily; Abilify 4 mg p.o. daily; not taking the Vistaril. Also on Ajovy for her migraines. Mental Status Examination: [] The patient is a 27-year-old female who appears normal for stated age and is casually dressed and groomed with good hygiene. She is ambulatory with a normal gait. She has no psychomotor agitation or retardation. She is cooperative during the interview and has good eye contact. Speech is normal rate and rhythm and fluent with no pressure. Mood is mildly anxious. Affect is full and normal. Thought processes goal-directed and organized. Thought content: The patient is looking forward to starting her new job but is worried that if she does not get her Adderall she will be not able to function as well. There is no evidence of passive thoughts of , suicidal ideation, homicidal ideation, hallucinations or delusions. Reality testing is intact. Judgment is intact. Insight is good. Impulsivity is moderate. Diagnoses: [] 1. Major depressive disorder, recurrent moderate 2. Panic disorder 3. Strong cluster B traits 4. Autism spectrum disorder 5. Marijuana use disorder 6. Nicotine use disorder on nicotine patch 7. Chronic migraine headaches and chronic neck stiffness Plan: [] Patient will continue the IOP program as the structure, support, education and group therapy will hopefully prevent worsening of the patient's symptoms which might require hospitalization. She felt safe during the interview and if it anytime she does not feel safe she will let us know or go to the emergency room. The risk, options, possible complications of medications were discussed with the patient and she understands and accepts these. The patient will restart her Adderall when she returns to her outpatient provider soon. No medication changes were made today except the patient agrees to try Flexeril 5 mg p.o. nightly to help possibly reduce tension in her neck and shoulders which is causing her discomfort and possibly increasing her incidence of migraine headaches. She will continue to follow-up with her outpatient medical and psychiatric providers and I will see the patient in follow-up while she is in the IOP program.
--- NOTE | 2022-10-13 13:08 | BH.TPR ---
Treatment Plan Review Date of Admission:: 09/16/22 Date of Treatment Plan Review:: 10/13/22 Admitting Diagnoses:: 1. F33.2 Major depressive disorder, recurrent, severe. 2. Panic disorder. 3. 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 4. Marijuana use disorder. 5. Nicotine use disorder on nicotine patch for several weeks Current Diagnoses:: 1. F33.2 Major depressive disorder, recurrent, severe. 2. Panic disorder. 3. 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 4. Marijuana use disorder. 5. Nicotine use disorder on nicotine patch for several weeks Patient's Response to Treatment:: Pt has responded overall well to IOP as evidenced by mostly consistent attendance, contributions to group, and often follows through with homework from individual session. Status of Current Problems and Symptoms: Ongoing problems. Client currently reporting difficulty with low energy which she reports is making it hard to engage in her hobbies and interests. Overall client reporting improvement with completing tasks/chores at home when compared to first starting IOP. Client doing better with recognition of distorted/negative thoughts and is starting to work on challenging those thoughts. Client having on and off interpersonal conflict with her which does impact client's mood. Client working on being more assertive with her . Client's DSM 5 scores at review show an overall 35% reduction in symptoms. Problem #1 Problem Name:: Depression Status of Goals:: obj 1 - partially met, ongoing work encouraged. Client is able to identify negative and distorted thought patterns. Client does struggle with independently challenging negative thoughts. Obj 2 - met, ongoing work encouraged. Client's DSM 5 scores at review show a 50% reduction in depressive symptoms. Team Recommendations:: Team recommends therapist to continue working with client on building emotion regulation skills and thought challenging. Problem #2 Problem Name:: Anxiety Status of Goals:: obj 1 - partially met, ongoing work encouraged. Client is able to identify healthy calming skills like belly breathing, grounding, and mindfulness. Client struggles with using these skills consistently. obj 2 - not met. Client's DSM 5 scores at review show a 16% reduction in anxious symptoms. Team Recommendations:: Team recommends continued work with calming skills, emotion regulation, and working on managing anxiety triggers.
--- NOTE | 2022-10-15 09:05 | BH.SGPN.GN ---
Behaviors/Verbalizations/Mental Status: []Pt alert and oriented, casually dressed and groomed. Eye contact good. Motor activity appropriate. Speech within normal limits. Affect congruent, mood calm. Thoughts linear, logical, no signs of hallucinations or delusions. Reviewed pt?s symptom tracker, no risk for suicidal ideation, plan, or intent as of 10/15/22 Client Response/Progress/Benefit: []Pt responded well to session, attentive and engaged. Pt shared feeling calm this morning as pt is moving my body a lot more which has helped pt get back some energy. Pt shared with her increase in energy, pt has been able to clean more and be more productive at home. Pt also reports belief that she is getting better with being alone by building distress tolerance skills. Pt's stressor today is dealing with a complaint that pt recently filed with a hotel. Pt feels confident in her complaint, but the stress of being assertive has triggered panic. Pt appeared to benefit from reflecting on her application of coping skills. Will continue IOP tx to promote mood stability, increase distress tolerance skills, and improve daily functioning. Narrative Note: []
--- NOTE | 2022-10-15 10:10 | BH.SGPN.GN ---
Behaviors/Verbalizations/Mental Status: [ ] Client alert and oriented, casually dressed and groomed. Eye contact good. Motor activity appropriate. Speech within normal limits. Affect congruent, mood euthymic. Thoughts linear, logical, no signs of hallucinations or delusions. Client Response/Progress/Benefit: [] Client responded well to session AEB sharing and listening attentively to others. Client provided examples of benefits of having social support, including that they can ?someone to vent too?. Client discussed what different social supports looks like and discussed public assistance being a form. Client participated in experiential activity illustrating the importance of having multiple social supports. Client provided supportive feedback and problem solving throughout group activity. Client participated in group processing of the activity, stating having more social support makes the equilibrium work better. Client appeared to benefit from increased knowledge of the benefits of social support and greater self-awareness. Will continue IOP treatment to continue increasing application of healthy coping skills and decreasing negative self-talk to improve daily functioning. Narrative Note: []
--- NOTE | 2022-10-15 11:15 | BH.SGPN.GN ---
Behaviors/Verbalizations/Mental Status: [] Client alert and oriented, casually dressed and groomed. Eye contact good. Motor activity appropriate. Speech within normal limits. Affect congruent, mood euthymic. Thoughts linear, logical, no signs of hallucinations or delusions. Client Response/Progress/Benefit: [] Client was an active participant throughout AEB contributing to discussion, providing personal examples, and taking notes. Client provided input during discussion on the types of support our supports can provide. Client able to identify current support system and barriers that get in the way of using supports by drawing out their own support net. Client reported after identifying what type of supports they receive; they gained awareness that they could benefit from more social supports. Client identified steps to achieve this by putting self out more by going to poetry group, attend government club, and play darts with friends. Client seemed to benefit from identifying the type of support client needs to work on improving. Client recommended to continue IOP tx to prevent decompensation, increase overall functioning, and increase emotional regulation skills. Narrative Note: []
--- NOTE | 2022-10-18 09:05 | BH.SGPN.GN ---
Behaviors/Verbalizations/Mental Status: []Pt alert and oriented, neatly dressed and groomed. Eye contact good. Motor activity appropriate. Speech within normal limits. Affect constricted- tearful at one time, mood anxious. Thoughts linear, logical, no signs of hallucinations or delusions. Reviewed pt?s symptom tracker, no risk for suicidal ideation, plan, or intent as of 10/18/22 Client Response/Progress/Benefit: []Pt responded well to session, attentive and engaged. Pt reports feeling anxious but hopeful this morning. Pt shared her grandmother might have cancer again which is making pt very sad/worried, but pt is trying to remain hopeful and focused on problem-solving. Pt's mental health wins today include making a new friend and spending more time with them as well as practicing self-reflection over the weekend. Pt appeared to benefit from emotional support from peers. Pt will continue IOP tx to promote mood stability, combat distortions, and increase self-confidence. Narrative Note: []
--- NOTE | 2022-10-18 10:05 | BH.SGPN.GN ---
Behaviors/Verbalizations/Mental Status: [] Client alert and oriented, casually dressed and groomed. Eye contact good. Motor activity appropriate. Speech within normal limits. Affect congruent, mood euthymic. Thoughts linear, logical, no signs of hallucinations or delusions. Client Response/Progress/Benefit: [] Client responded well to session, contributing to discussion and engaged during the activity. Attentive during discussion on the quote and shared personal story with stating initially going through change with her sister was scary, but after going through it, it has not be as hard as expected. Group identified the benefits of change which included: personal growth, positive perspective, increased confidence and better mental health. Worked with the group to identify barriers to change, which included: uncomfortable emotions such as anxiety, lack of awareness, low energy, support system, and negative thinking. Client also reflected on past negative experiences can keep people from making changes. Client participated along with group in activity where they identified and discussed the emotions related to change. Benefited from increased awareness and understanding of emotions, benefits, and barriers related to change. Will continue IOP tx to increase overall functioning, utilize psotive coping strategies, and prevent decompensation. Narrative Note: []
--- NOTE | 2022-10-18 11:13 | BH.SGPN.GN ---
Behaviors/Verbalizations/Mental Status: [ ] Client alert and oriented, casually dressed and groomed. Eye contact good. Motor activity appropriate. Speech within normal limits. Affect congruent, mood euthymic. Thoughts linear, logical, no signs of hallucinations or delusions. Client Response/Progress/Benefit: [] Client responded well to session, attentive AEB participating in activity and actively engaging in group discussion. Group processed activity to relate the strategies used to overcome barriers in the activity to managing change in own life. Discussed and set SMART goal in group as it relates to change group members are wanting to make. Client identified change she wants for herself is to not feel tired all the time. Identified being in the preparation stage. Client stated her goal is to exercise 2-3 times a week. Appeared to benefit from identifying a small goal to work towards. Client will continue IOP tx to increase overall functioning, improve self-worth, and increase overall functioning. Narrative Note: []
--- NOTE | 2022-10-20 10:05 | BH.SGPN.GN ---
Behaviors/Verbalizations/Mental Status: []Client alert and oriented, casually dressed and groomed. Eye contact good. Motor activity appropriate. Speech normal. Affect congruent, mood euthymic. Thoughts linear, logical, no signs of hallucinations or delusions. Client Response/Progress/Benefit: []Client's receptive of session, remained an actively engaged participant, AEB client listening and taking notes throughout, as well as participated in small group discussion. Attentive during psychoeducation on communication styles, providing a personal example of passive-aggressive communication. Assisted group with identifying barriers of effective communication which included: assuming, shutting down, dominating the conversation, and using text to communicate. Identified a personal barrier as making assumptions. Benefited from increased awareness of different communication barriers, styles, and the importance of communicating effectively to improve mental wellness. Will continue IOP tx to continue to improve overall functioning, promote mood stability, and prevent decompensation. Narrative Note: []
--- NOTE | 2022-10-20 11:15 | BH.SGPN.GN ---
Behaviors/Verbalizations/Mental Status: [] Client alert and oriented, casually dressed and groomed. Eye contact good. Motor activity appropriate. Speech within normal limits. Affect congruent, mood euthymic. Thoughts linear, logical, no signs of hallucinations or delusions Client Response/Progress/Benefit: [] Client responded well to session AEB client listening attentively to others and providing input during group discussion. Client did well in the activity to be assertive and ask for feedback. Recognizes if group wasn't assertive in activity, they wouldn't have been successful. Discussed with group communication strategies used to make activity successful. Attentive during psychoeducation on interpersonal DBT skill JIGAR. Client set a goal to work on being more confident when asserting her thoughts and needs. Client seemed to benefit from increasing awareness of healthy strategies to improve communication. Will continue IOP tx to improve thought processes to combat anxiety, challenge negative thinking, and prevent decompensation.
--- NOTE | 2022-10-20 15:13 | BH.MDN_ITS ---
Multi-Disciplinary Note - Note 45-min Individual Time Started:: 09:10 Date: 10/20/22 Purpose of session/treatment goals addressed:: Purpose of session was to address goals 1 and 2 from MTP. Eye Contact:: Good Motor Activity:: Appropriate Appearance:: Casual Speech:: Appropriate Mood:: Euthymic, Anxious Affect:: Congruent Thoughts:: Linear, Logical, No evidence of hallucinations/delusions noted Staff Interventions:: thought challenging, CBT techniques, mindfulness skills, strengths perspective, goal setting, other - Prepared for starting of job next week. Client Response:: Client reported she starts her new job on Tuesday and is feeling excited. Client reported she will be working from 7 AM to 3 PM for 3 days a week. Client reported she feels like it is something that she can do. Client stated she is anxious about getting a migraine, being able to get along with others, and being able to wake up and get to work on time. 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 Client stated her energy level has been better in the last few days which does make her worried that this job will now be to monotonous. However client was able to recognize something that she wants to at least try before she gives up. Client worked with therapist to identify skills and strategies that can be helpful to help manage any symptoms while at work. Client agreed it would be helpful for her to download podcast and music since she is allowed to have headphones while she is on the machines. Client stated she thinks having her new alarm clock that rolls off her side table when it goes off will help her get up in the morning. With therapist help client agreed it could be helpful to either put her headphones in or change the topic if she feels like frustrated or irritated 1 coworkers bring up topics that she is passionate about and has a different viewpoint. Client agreed she does not want to leave this job because of somebody else's viewpoints. Client receptive to therapist helping her thought challenge some of her negative thoughts about the upcoming job. Therapist encouraged client to not talk herself out of the job before she even gets there. Client agreed she does tend to do that and will focus on the reason she is doing this job is to do something with less stress and to make money. Client reported this weekend she plans to spend time with her and plans to re lax. Client stated she is excited that she feels like she is making some new friends from the posterior group she goes to occasionally every month. Client stated she has plans with these friends next month and got to hang out with them last weekend. Client stated she did address some of her concerns with one of her newer friends about the friend not responding to her text messages and that direct conversation went really well client stated. Client reported her goal for this weekend is to focus on relaxation and challenging any negative thoughts that might pop up about her job. Risks/Concerns:: Denies suicidal ideation, plan, intention to date. Future oriented. Progress Toward Goals/Plan:: Progress noted with client reporting improved e nergy, increased part to do this weekend at home, and starting to form healthier friendships. Client expresses excitement about starting a job because it would give her something to do 3 days a week and help her make some money which will decrease financial stress. Client is to continue IOP to help her transition back into the work field, maintain gains, and prevent decompensation. Time Stopped:: 09:50
== END 2022-10-22 23:59 ==
LOC: BHIOP 06:50
PROVIDERS: Referring Provider Psychiatry & Neurology Psychiatry; Visit Provider Psychiatry & Neurology Psychiatry
DX: F33.1 Major depressive disorder, recurrent, moderate (principal); F41.0 Panic disorder [episodic paroxysmal anxiety]; F84.0 Autistic disorder; F17.200 Nicotine dependence, unspecified, uncomplicated; F12.90 Cannabis use, unspecified, uncomplicated; Z79.899 Other long term (current) drug therapy; M25.69 Stiffness of other specified joint, not elsewhere classified; G43.709 Chronic migraine without aura, not intractable, without status migrainosus
CPT/HCPCS: S9480; 90834; 90837; 90853

== ENCOUNTER 2022-10-25 08:15 | Outpatient (RCR) | payer BC, SELFPAY ==
[2022-10-23 02:08] VITALS: BP 140/86; PULSE 89
--- NOTE | 2022-10-26 10:15 | BH.SGPN.GN ---
Behaviors/Verbalizations/Mental Status: []Eye contact is good. Motor activity is appropriate. Appearance is casual. Speech is Appropriate. Mood is dysthymic. Affect is congruent. Thoughts are linear and logical. No evidence of psychosis. Client Response/Progress/Benefit: []Pt was an active participant in group discussions. Attentive during psychoeducation. Participated during interactive discussions in which peers attempted to define crisis. Pt identified several examples of potential crisis. Group also worked together to identify unhealthy responses to crisis which included; isolation, self-harm, overuse of distraction, avoidance, and lashing out. Pt identified she often responds with use of avoidance via watching t.v. to avoid dealing with crisis or ends up ruminating on the crisis at night. Benefited from increased understanding of crisis and awareness of personal responses to crisis. Pt will continue IOP tx to further improve communication with supports, maintain mood stability, and prevent decompensation. Narrative Note: []
--- NOTE | 2022-10-26 11:15 | BH.SGPN.GN ---
Behaviors/Verbalizations/Mental Status: []Client alert and oriented, casually dressed and groomed. Eye contact good. Motor activity appropriate. Speech within normal limits. Affect congruent, mood euthymic. Thoughts linear, logical, no signs of hallucinations or delusions. Client Response/Progress/Benefit: []Client responded well to session as evidenced by client listening attentively to others and providing strategies during small group discussion. Connected as fellow participants discussed the importance of identifying and addressing personal warning signs. Client identified warning signs for crisis and gained further awareness of earliest warning signs. Client created a crisis action plan to help client better manage warning signs for crisis. Client?s action plan for lack of hygiene/sleep includes: opposite action, small daily goal lists, meditation, breathing techniques, and reminding self of benefits. Client appeared to benefit from creating a crisis action plan and increasing self-awareness. Client to continue IOP tx to increase consistent use of healthy coping skills, challenge negative thoughts and prevent decompensation.
--- NOTE | 2022-10-26 14:36 | BH.MDN ---
Multi-Disciplinary Note - Note 30-min Individual Time Started:: 09:20 Date: 10/26/22 Purpose of session/treatment goals addressed:: Purpose of session was to address goals 1 and 2 from MTP. Eye Contact:: Good Motor Activity:: Appropriate Appearance:: Casual Speech:: Appropriate Mood:: Euthymic Affect:: Congruent Thoughts:: Linear, Logical, No evidence of hallucinations/delusions noted Staff Interventions:: thought challenging, CBT techniques, mindfulness skills, strengths perspective, goal setting Client Response:: Client stated yesterday she was feeling stressed for her first day at work but noted she was able to manage her emotions. Client stated she only had to go to work for about 2 hours just for orientation. Client reported she found out more about what she be specifically doing throughout the work day and clarified what she would be allowed to do in regards to breaks and what she could have at her station. Client reported she feels like her job tasks will be very manageable. Client reported she is starting to have some ambivalence about whether this job is something she will like. 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 Client worked with therapist to identify reasons she is choosing to have this job. Client identified those reasons to be: Previous jobs were too stressful, will feel less exhausted after this job, not having to hear such heavy stories, will make money, and gives her routine/structure. Client responded well to the challenge by therapist and recognized she was starting to talk herself on the job before really giving it a chance. Client reported she had a great weekend with her . Client stated she spent time playing Pok?mon go, going out to eat, play darts with her , and hung out with family. Client agreed she does feel ready for discharge from [facility] next week. Risks/Concerns:: Denies suicidal ideation, intention, and plan. Progress Toward Goals/Plan:: Progress noted as evidenced by client being able to make it through her first day at work while managing her anxiety. Client struggling with some negative thinking that she will not be able to maintain his job or that she will like this job. Client receptive to challenging those negative thought patterns. Client continuing to report decreased depression and ability to manage her anxious thoughts better. Plan is for client to discharge from [facility] next week. Time Stopped:: 09:53
--- NOTE | 2022-10-29 09:05 | BH.SGPN.GN ---
Behaviors/Verbalizations/Mental Status: [] Eye contact is good. Motor activity is appropriate. Appearance is casual. Speech is Appropriate. Mood is euthymic. Affect is full. Thoughts are linear and logical. No evidence of psychosis. Reviewed daily check in sheet and no reports of suicidal ideations or intent. Client Response/Progress/Benefit: [] Pt was an active participant in group discussion. Attentive. Emotion for today is content. Shared that she made it through her first week of work. Feeling more confident and is getting along with her co-workers. Another mental health win was she was Assertive when communicating with her while this led to initial conflict she was able to communicate her needs and concerns effectively which ultimately led to her being empathetic and apologetic. Utilized skills more consistently such as reframing which is helping her manage through automatic negative thoughts. Benefited from group support, encouragement, and feedback. Will continue in IOP to maintain gains and transition to FT work. Narrative Note: []
--- NOTE | 2022-10-29 10:15 | BH.SGPN.GN ---
Behaviors/Verbalizations/Mental Status: []Pt alert and oriented, casually dressed and groomed. Eye contact good. Motor activity appropriate. Speech within normal limits. Affect congruent, mood content, euthymic. Thoughts linear, logical, no signs of hallucinations or delusions. Client Response/Progress/Benefit: []Pt was an engaged participant AEB providing input, listening to others, and taking notes. Participated in interactive group discussion on internal and external barriers to mental health progress. Pt described current reality using a mountain metaphor. Pt shared feeling like ?It?s an uphill climb but I know I have my supports to help me through it.? Reported desired reality is being able to maintain the progress he has made and improve independent coping skills without pushing away her supports. Pt shared personal barriers to desired realty include: unrealistic expectations of self, mind-reading, and poor emotion regulation. Benefited from increased awareness of current barriers to progress as well as current/desired realities. Pt to continue IOP to prevent decompensation, improve daily functioning, and increase use of healthy coping skills. ? Narrative Note: []
--- NOTE | 2022-10-29 11:10 | BH.SGPN.GN ---
Behaviors/Verbalizations/Mental Status: []Client alert and oriented, casually dressed and groomed. Eye contact good. Motor activity appropriate. Speech within normal limits. Affect congruent to topics being discussed, mood euthymic. Thoughts linear, logical, no signs of hallucinations or delusions. Client Response/Progress/Benefit: []Client an active participant, encouraging peers and contributed as group brainstormed ideas on how to cope with internal barriers that keep clients stuck from moving towards goals. Able to identify barriers to desired reality. Worked with group to identify strategies to help overcome barriers. Identified personal barriers to desired reality. Client wants to work on overcoming the barrier of mind reading by asking self is this reasonable. Benefited from group by identifying obstacles and solutions to desired reality. Client to continue IOP to increase healthy coping, challenge negative thoughts, and prevent decompensation.
--- NOTE | 2022-11-01 09:05 | BH.SGPN.GN ---
Behaviors/Verbalizations/Mental Status: [] Eye contact good. Motor activity appropriate. Speech within normal limits. Affect congruent, mood anxious and euthymic. Thoughts linear, logical, no signs of hallucinations or delusions. Reviewed client?s symptom tracker, no risk for suicidal ideation, plan, or intent as of 11/01/2022. Client Response/Progress/Benefit: [] Client responded well to session, attentive and willing to process with group. Identified current mental health wins as meeting goal of being more active over the weekend with pushing herself to go on a hike. Client also discussed that she went to a family event and enjoyed herself as opposed to feeling tired that she typically does due to perspective changes and changes in her diet. Current stressor noted as not really enjoying the social aspect of her new job, even though she feels confident of the work part of it.Shared she feels pressured to talk a lot which is something she does not want to have to do. Client appeared to benefit from group support and encouragement. Continues to display progress in use of thought challenging and communication with supports. Recommended continued IOP tx to continue to improve use of coping skills, promote mood stability, as well as prevent decompensation. Narrative Note: []
--- NOTE | 2022-11-01 10:10 | BH.SGPN.GN ---
Behaviors/Verbalizations/Mental Status: [] Eye contact is good. Motor activity is appropriate. Appearance is casual. Speech is Appropriate. Mood is euthymic. Affect is full. Thoughts are linear and logical. No evidence of psychosis. Client Response/Progress/Benefit: [] Pt was an active participant in group discussion. Attentive during psychoeducation on fixed mindset. Participated during interactive discussions in which group worked together to define 'fixed mindset'. Descriptors identified included; only one way of seeing things, absolute thinking, not compromising, and believing that nothing could change. Participated in further discussion on the negatives that result from a 'fixed' mindset which are; emotional dysregulation, decreased confidence in oneself, feeling 'stuck', feelings of worthlessness, hopelessness, and 'giving up'. Benefited from increased understanding of 'fixed' mindset and its impact on mental health. Will continue in IOP to maintain safety, prevent decompensation, and to improve functioning. Narrative Note: []
--- NOTE | 2022-11-01 11:10 | BH.SGPN.GN ---
Behaviors/Verbalizations/Mental Status: []Pt alert and oriented, neatly dressed and groomed. Eye contact good. Motor activity appropriate. Speech within normal limits. Affect congruent, mood euthymic. Thoughts linear, logical, no signs of hallucinations or delusions. Client Response/Progress/Benefit: []Pt engaged during activity and discussion AEB providing some input, connecting with peers, as well as taking notes throughout. Pt did well to engage as group worked on identifying characteristics and benefits of adopting a growth mindset. Worked with fellow participants in reframing the example fixed thoughts into growth mindset thoughts. Reframed personal fixed thought of ?my friends don?t really like me? with growth mindset thought of ?if my friends don?t like it it?s their responsibility to say so.? Benefitted from discussing benefits of growth mindset and brainstorming strategies for prompting growth-mindset. Pt shared it is easier for her to challenge thoughts now than when she first started IOP. Pt did well in small group to challenge own thoughts and help peers. Pt will continue IOP tx to promote gains, reinforce healthy coping skills, and further combat distortions. Narrative Note: []
--- NOTE | 2022-11-02 10:12 | BH.SGPN.GN ---
Behaviors/Verbalizations/Mental Status: []Client alert and oriented, casually dressed and groomed. Eye contact good. Motor activity appropriate. Speech within normal limits. Affect congruent, mood anxious and euthymic. Thoughts linear, logical, no signs of hallucinations or delusions. Client Response/Progress/Benefit: []Client receptive of session, actively engaged throughout AEB taking notes and provided input and examples to discussion. Appeared to connect with group topic of cognitive distortions and the impact of thought patterns on mental health, coping behaviors, and relationships. Reflected that he personally tends to struggle with distortions of mindreading and overgeneralization. Provided examples of these thoughts when communicating with supports. Client appeared to benefit from gaining insight on distorted thinking patterns and how this impacts overall mental health. Progress noted in client report of improved insight and ability to combat distortions with alternative positive thoughts. Will d/c from IOP tx and continue with individual counseling to maintain gains, continue to promote mood stability, and further increase overall functioning. Narrative Note: []
--- NOTE | 2022-11-02 11:15 | BH.SGPN.GN ---
Behaviors/Verbalizations/Mental Status: []Eye contact is fair to good. Motor activity is appropriate. Appearance is casual. Speech is WNL. Mood is anxious. Affect is congruent. Thoughts are linear and logical. No evidence of psychosis. Client Response/Progress/Benefit: []Pt engaged participant AEB providing input during small group discussion and engaging in activity. Activity involved working with peers to answer questions related to psychoeducation on cognitive distortions and practicing reframing distorted thoughts. Pt collaborated with the group to determine the answers. Identified cognitive distortions struggles with the most as mind reading, catastrophizing, and emotional reasoning. Able to connect impact distortions has on her mental health. Benefited from rehearsing ways to challenge/reframe cognitive distortions and by gaining increased insight into examples/definitions of 10 most common cognitive distortions. Will continue in IOP to continue use of healthy coping, help with transition to new job, and prevent decompensation.
--- NOTE | 2022-11-02 14:22 | BH.MDN ---
Multi-Disciplinary Note - Note 30-min Individual Time Started:: 09:01 Date: 11/02/22 Purpose of session/treatment goals addressed:: Purpose of session was to identify treatment progress, complete maintenance plan, and solidify aftercare plans. Eye Contact:: Good Motor Activity:: Appropriate Appearance:: Casual Speech:: Appropriate Mood:: Euthymic Affect:: Congruent Thoughts:: Linear, Logical, No evidence of hallucinations/delusions noted Staff Interventions:: CBT techniques, discharge planning, strengths perspective, reviewed DSM-5 Client Response:: Client reported she went to work for 3 days last week and felt like the actual job tasks are very doable. Client stated she is just not used to shop talk. Client reported there was a situation on one of the days at work in which another coworker misinterpreted what client said and verbally confronted client. Client stated in the past this would have led to a significant meltdown but was able to articulate what she had said and manage the conflict appropriate. Client recognizes this job is not forever job but it is what she has been looking for so she can make money and have something that is less stressful. Client stated she plans to continue this job for a while until she feels more stable on ready to take on a more stressful job. Client shared her weekend work well because she spent quality time with her . Client stated there were 2 situations in which they had friends back out on their plans client was able to challenge negative thoughts to manage those minor stressors in the moment. Client stated she is feeling excited that today is her last day in [facility] and feels more ready to be done. Client identified treatment progress include: Improved emotional regulation, no suicidal ideation, able to challenge negative thought patterns, improve relationships, and improve daily functioning. Client reports cooperative with therapist to complete maintenance plan in which she identified triggers, warning signs, self-care activities, and healthy coping skills. Client is established with outpatient counseling and psychiatry. Risks/Concerns:: Denies suicidal ideation, plan, or intention. Future oriented. Progress Toward Goals/Plan:: Progress noted as evidenced by DSM-V scores at discharge which indicate a overall 76% reduction in symptoms. DSM-V scores also indicated a 75% decrease in depression, 66% reduction in anxiety and 100% reduction in suicidal thoughts. Client noted significant treatment progress since starting IOP and improve daily functioning. Plan is for client to discharge from [facility] today. Client has appointment with outpatient counselor next week and is seeing her outpatient psychiatrist today. Time Stopped:: 09:35
--- NOTE | 2022-11-02 15:50 | BH.DS ---
Discharge Summary - Demographics Date of Admission:: 09/16/22 Discharge Date: 11/02/22 Presenting Problems at Admission:: The patient is a 26-year-old female who has been for 2 years and currently lives with her who is referred by her outpatient counselor to the [facility] behavioral health IOP program for worsening symptoms of depression and anxiety. The patient's symptoms have been impacting her functioning at home and also she feels have not impacted her ability to hold a job. She has had 4 jobs since 2019 and has been unable to maintain them for any longer really than 5 months. Patient endorses crying spells, sadness and low motivation, passive thoughts of , hopelessness, worthlessness and guilt. Discharge Diagnoses:: 1. Major depressive disorder, recurrent moderate F33.1. 2. Panic disorder. 3. Strong cluster B traits. 4. Autism spectrum disorder. 5. Marijuana use disorder. 6. Nicotine use disorder on nicotine patch Reason for Discharge:: Client has made significant treatment progress since starting IOP and no longer meets criteria for IOP level of care. - Treatment Progress During Treatment & Response: Client as made significant progress AEB DSM-V cross cutting measure scores at discharge which shows a 75% reduction in depression, 66% reduction in anxiety, 100% reduction in suicidal thoughts, and an overall 76% reduction in overall symptoms. Client reports improved relationships, improved daily functioning at home, improved emotion regulation, and has started a new job last week. Client responded well to IOP AEB her consistently attending sessions, often engaging in group discussions, and completed homework outside of treatment environment. Issues Still to be Addressed:: Client could benefit from continued work on emotion regulation, conflict management, challenging distortions, and improving confidence. Discharge Recommendations/Instructions:: Client has scheduled appointment for next week with outpatient therapist Iris through [phone]. Client is going to her outpatient psychiatrist appointment today at [id number]. Discharge Handout: Complete Discharge Handout with client on aftercare options and continuity of care.
== END 2022-11-03 06:50 | disposition home or self-care (01) ==
LOC: BHIOP 08:15
PROVIDERS: Referring Provider Psychiatry & Neurology Psychiatry; Visit Provider Psychiatry & Neurology Psychiatry
DX: F33.1 Major depressive disorder, recurrent, moderate (principal); F12.90 Cannabis use, unspecified, uncomplicated; F17.290 Nicotine dependence, other tobacco product, uncomplicated; F84.0 Autistic disorder; F41.0 Panic disorder [episodic paroxysmal anxiety]
CPT/HCPCS: S9480; 90832; 90853